=== PATIENT | female | born 1990 | race Caucasian/White ===

== ENCOUNTER → 2017-03-27 | Outpatient (REF) | payer OTHER ==
[~2017-03-27] MED LIST: WELC625T PO
[2017-03-27 19:01] LABS: MEAN CORPUSCULAR HEMOGLOBIN 30.9 pg (27.0-33.0); MEAN CORPUSCULAR VOLUME 90.9 fl (80.0-96.0); RED CELL DISTRIBUTION WIDTH 12.6 % (11.5-14.5); WHITE BLOOD COUNT 11.4 K/mm3 (4.0-10.0)
[2017-03-28 10:23] LABS: HCG, SERUM QUANTITATIVE 6504 MIU/ML
== END ==
LOC: M LAB REF 17:05
PROVIDERS: ATTEND Advanced Practice Midwife
DX: O36.80X0 Pregnancy with inconclusive fetal viability, not applicable or unspecified (principal)

== ENCOUNTER 2017-03-30 18:10 | Emergency (ER) | payer OTHER ==
[~2017-03-30] VITALS: Ht 170.2 cm; Wt 99.8 kg
[2017-03-30 18:11] VITALS: BP 137/83
[2017-03-30] MEDS ORDERED: WELC625T PO (18:20)
[2017-03-30 19:30] LABS: BASO % 0.4 % (0.0-1.0); EOS # 0.2 K/mm3 (0.0-0.50); EOS % 1.8 % (0.0-3.0); LARGE UNSTAINED CELL # 0.2 K/mm3 (0.0-0.4); LARGE UNSTAINED CELL % 1.3 % (0.0-4.0); LYMPH # 2.6 K/mm3 (1.5-6.5); LYMPH % 22.5 % (24.0-44.0); MEAN CORPUSCULAR HEMOGLOBIN 30.4 pg (27.0-33.0); MEAN CORPUSCULAR HGB CONC 33.2 g/dl (32.0-36.5); MEAN CORPUSCULAR VOLUME 91.4 fl (80.0-96.0); MONO # 0.6 K/mm3 (0.0-0.8); MONO % 4.9 % (0.0-5.0); NEUTROPHILS % 69.1 % (36.0-66.0); PLATELET COUNT, AUTOMATED 221 k/mm3 (150-450); RED CELL DISTRIBUTION WIDTH 12.5 % (11.5-14.5); WHITE BLOOD COUNT 11.6 K/mm3 (4.0-10.0)
[2017-03-30 20:05] LABS: ANION GAP 6 MEQ/L (8-16); BLOOD UREA NITROGEN 11 MG/DL (7-18); CALCIUM LEVEL 8.5 MG/DL (8.5-10.1); CARBON DIOXIDE LEVEL 29 MEQ/L (21-32); CHLORIDE LEVEL 106 MEQ/L (98-107); CREATININE FOR GFR 0.74 MG/DL (0.55-1.02); GLOMERULAR FILTRATION RATE > 60.0 (>60); GLUCOSE, FASTING 88 MG/DL (70-105); HCG, SERUM QUANTITATIVE 8309 MIU/ML; POTASSIUM SERUM 3.6 MEQ/L (3.5-5.1); SODIUM LEVEL 141 MEQ/L (136-145)
--- NOTE | 2017-03-30 21:20 | REPUSA ---
CLINICAL HISTORY: Bleeding. TECHNIQUE: Realtime sonographic images were obtained in multiple projections. COMMENTS: LMP is 02/09/2017. Gestational age by LMP for this patient is 7 weeks 0 days. Uterus measures 7.5 (CC) x 4.6 (AP) x 5.7 (Transverse) cm and anteverted in appearance. Gestational sac measures 15.5 (CC) x 8.3 (AP) x 10.9 (Transverse) mm. Mean gestational sac measures 11.8 mm equals to 6 weeks 1 day. pole measures 4.3 mm which equals to 6 weeks 1 day. No heart rate identified. Right ovary measures 2.7 (CC) x 1.8 (AP) x 1.6 (Transverse) cm. Left ovary measures 3.0 (CC) x 1.9 (AP) x 2.9 (Transverse) cm. Fluid noted within cervical canal. IMPRESSION: Single IUP. No FHR identified most compatible with demise. Consider follow up study in 3-5 days for confirmation. Thank you for your kind referral of this patient. We appreciate the opportunity to participate in th is patient's care.
== END 2017-03-30 21:50 | disposition home or self-care (01) ==
LOC: M ED 19:08
DX: O03.4 Incomplete spontaneous abortion without complication (principal); Z3A.01 Less than 8 weeks gestation of pregnancy; Z87.891 Personal history of nicotine dependence

== ENCOUNTER → 2017-04-02 | Outpatient (REF) | payer OTHER | LOC: M LAB REF 17:23 | PROVIDERS: ATTEND Advanced Practice Midwife | DX: O20.0 Threatened abortion (principal) ==

== ENCOUNTER → 2017-04-09 | Outpatient (REF) | payer OTHER | LOC: M LAB REF 16:38 | PROVIDERS: ATTEND Advanced Practice Midwife | DX: O20.0 Threatened abortion (principal); Z3A.00 Weeks of gestation of pregnancy not specified ==

== ENCOUNTER → 2017-04-19 | Outpatient (REF) | payer OTHER | LOC: M LAB REF 14:58 | PROVIDERS: ATTEND Advanced Practice Midwife | DX: O20.0 Threatened abortion (principal) ==

== ENCOUNTER → 2017-04-26 | Outpatient (REF) | payer OTHER | LOC: M LAB REF 15:03 | PROVIDERS: ATTEND Advanced Practice Midwife | DX: O20.0 Threatened abortion (principal) ==

== ENCOUNTER → 2017-05-06 | Outpatient (REF) | payer OTHER | LOC: M LAB REF 17:07 | PROVIDERS: ATTEND Advanced Practice Midwife | DX: O02.1 Missed abortion (principal) ==

== ENCOUNTER → 2017-06-25 | Outpatient (CLI) | payer OTHER ==
[~2017-06-25] MED LIST changes: +COLE625TAB PO; -WELC625T PO
[2017-06-25 13:59] LABS: ALBUMIN 3.9 GM/DL (3.2-5.2); ALBUMIN/GLOBULIN RATIO 1.08 (1.00-1.93); ALKALINE PHOSPHATASE 84 U/L (45-117); ALT/SGPT 54 U/L (12-78); ANION GAP 8 MEQ/L (8-16); AST/SGOT 36 U/L (15-37); BILIRUBIN,TOTAL 0.6 MG/DL (0.2-1.0); BLOOD UREA NITROGEN 13 MG/DL (7-18); CALCIUM LEVEL 9.1 MG/DL (8.5-10.1); CARBON DIOXIDE LEVEL 27 MEQ/L (21-32); CHLORIDE LEVEL 107 MEQ/L (98-107); CHOLESTEROL LEVEL 185 MG/DL (<200); CREATININE FOR GFR 0.89 MG/DL (0.55-1.02); GLOMERULAR FILTRATION RATE > 60.0 (>60); GLUCOSE, FASTING 82 MG/DL (70-105); POTASSIUM SERUM 4.7 MEQ/L (3.5-5.1); SODIUM LEVEL 142 MEQ/L (136-145); TOTAL PROTEIN 7.5 GM/DL (6.4-8.2); TRIGLYCERIDES LEVEL 195 MG/DL (<150)
== END ==
LOC: M SMT 08:53
PROVIDERS: ATTEND Physician Assistant Medical
DX: Z13.220 Encounter for screening for lipoid disorders (principal); Z13.29 Encounter for screening for other suspected endocrine disorder

== ENCOUNTER → 2017-06-25 | Outpatient (REF) | payer OTHER | LOC: M LAB REF 17:34 | PROVIDERS: ATTEND Advanced Practice Midwife | DX: Z12.4 Encounter for screening for malignant neoplasm of cervix (principal) ==

== ENCOUNTER → 2018-02-25 | Outpatient (CLI) | payer OTHER ==
[2018-02-25 18:01] LABS: BASO # 0.1 10^3/uL (0.0-0.2); BASO % 0.4 % (0.0-1.0); EOS # 0.1 10^3/uL (0.0-0.50); EOS % 0.7 % (0.0-3.0); HEMATOCRIT 40.2 % (36.0-47.0); HEMOGLOBIN 13.1 g/dl (12.0-16.0); IMMATURE GRANULOCYTE % 0.4 % (0-3.0); LYMPH # 2.2 10^3/uL (1.5-6.5); LYMPH % 19.5 % (24.0-44.0); MEAN CORPUSCULAR HEMOGLOBIN 29.2 pg (27.0-33.0); MEAN CORPUSCULAR HGB CONC 32.6 g/dl (32.0-36.5); MEAN CORPUSCULAR VOLUME 89.7 fl (80.0-96.0); MONO # 0.8 10^3/uL (0.0-0.8); MONO % 6.9 % (0.0-5.0); NEUTROPHILS # 8.2 10^3/uL (1.8-7.7); NEUTROPHILS % 72.1 % (36.0-66.0); PLATELET COUNT, AUTOMATED 244 10^3/uL (150-450); RED BLOOD COUNT 4.48 10^6/uL (4.00-5.40); RED CELL DISTRIBUTION WIDTH 12.6 % (11.5-14.5); WHITE BLOOD COUNT 11.3 10^3/uL (4.0-10.0)
[2018-02-26 10:40] LABS: RUBELLA IgG QUALITATIVE IMMUNE (IMMUNE)
[2018-02-26 10:44] LABS: HBsAg Prenatal NEGATIVE (NEGATIVE)
[2018-02-26 11:02] LABS: HEPATITIS C VIRUS ABY INDEX < 0.0 INDEX (<0.8)
[2018-02-26 11:24] LABS: HIV 1&2 SCREEN CENTAUR NEGATIVE (NEGATIVE)
== END ==
LOC: M SMT 15:12
DX: Z36.89 Encounter for other specified antenatal screening (principal); Z3A.01 Less than 8 weeks gestation of pregnancy
CPT/HCPCS: 86762

== ENCOUNTER → 2018-04-25 | Outpatient (CLI) | payer OTHER ==
[2018-04-25 16:16] LABS: CHLAMYDIA DNA AMPLIFICATION NEGATIVE (NEGATIVE); GC DNA AMPLIFICATION NEGATIVE (NEGATIVE)
== END ==
LOC: M LAB 09:03
DX: Z34.81 Encounter for supervision of other normal pregnancy, first trimester (principal)

== ENCOUNTER → 2018-05-16 | Outpatient (CLI) | payer OTHER | LOC: M RAD 14:08 | DX: Z36.89 Encounter for other specified antenatal screening (principal); O32.1XX0 Maternal care for breech presentation, not applicable or unspecified; Z3A.18 18 weeks gestation of pregnancy | CPT/HCPCS: 76811 ==

== ENCOUNTER → 2018-09-08 | Outpatient (REF) | payer OTHER | LOC: M LAB REF 18:42 | DX: D22.62 Melanocytic nevi of left upper limb, including shoulder (principal) ==

== ENCOUNTER → 2018-09-09 | Outpatient (REF) | payer OTHER ==
[2018-09-09 18:35] LABS: RETIC HEMOGLOBIN EQUIVALENT 32.8 pg (24-36); RETICULOCYTE # 85.4 10^9/L (17-77); RETICULOCYTE % 2.2 % (0.5-1.5)
[2018-09-09 19:16] LABS: FERRITIN 6 NG/ML (8-252); FOLATE 22.1 NG/ML (>5.4); IRON (FE) 78 UG/DL (50-170); PERCENT SATURATION 15.5 % (13.2-45.0); TOTAL IRON BINDING CAPACITY 502 UG/DL (250-450)
== END ==
LOC: M SFHCPLAZ 14:45
DX: D64.9 Anemia, unspecified (principal)

== ENCOUNTER → 2018-09-18 | Outpatient (REF) | payer OTHER | LOC: M LAB REF 17:09 | DX: Z34.83 Encounter for supervision of other normal pregnancy, third trimester (principal); Z3A.00 Weeks of gestation of pregnancy not specified ==

== ENCOUNTER → 2018-10-03 | Outpatient (CLI) | payer OTHER ==
[2018-10-07 00:07] LABS: ANTI-PARIETAL CELL ANTIBODY 10.5 Units (0.0-20.0)
[2018-10-07 00:07] LABS: INTRINSIC FACTOR ANTIBODY 0.9 AU/mL (0.0-1.1)
== END ==
LOC: M SMT 14:11
DX: E53.8 Deficiency of other specified B group vitamins (principal)

== ENCOUNTER 2018-10-08 06:18 | Inpatient (IN) | payer OTHER ==
[2018-10-08] MEDS ORDERED: FENTANYL 2MCG/ML ROPIVACAINE 0.2% IN 0.9% NACL 200ML IVBAG As Ordered (10:30)
[2018-10-08 10:41] LABS: HEMATOCRIT 37.3 % (36.0-47.0); HEMOGLOBIN 12.4 g/dl (12.0-15.5); MEAN CORPUSCULAR HEMOGLOBIN 28.5 pg (27.0-33.0); MEAN CORPUSCULAR HGB CONC 33.2 g/dl (32.0-36.5); MEAN CORPUSCULAR VOLUME 85.7 fl (80.0-96.0); PLATELET COUNT, AUTOMATED 168 10^3/uL (150-450); RED BLOOD COUNT 4.35 10^6/uL (4.00-5.40); RED CELL DISTRIBUTION WIDTH 14.6 % (11.5-14.5); WHITE BLOOD COUNT 12.3 10^3/uL (4.0-10.0)
[2018-10-08] MEDS: LACTATED RINGER'S 1000 ML IV (11:00)
[2018-10-08] MEDS: LR 1,000 ML IV (12:00)
[2018-10-08] MEDS ORDERED: diphenhydrAMINE INJ 50MG/ML VIAL (J1200) IV (12:15)
[2018-10-08] MEDS: FENTANYL/ROPIVACAINE/NACL BAG 200 ML EPIDURAL (12:15)
[2018-10-08] MEDS ORDERED: REFRIGERATOR IV KEYS XX (12:15)
[2018-10-08] MEDS ORDERED: EPIDURAL COMMENT XX (12:15)
[2018-10-08] MEDS ORDERED: ePHEDrine SULFATE 25 MG/5 ML(5MG/ML) SYRINGE IV (12:15)
[2018-10-08] MEDS ORDERED: EPIDURAL/PCA KEYS XX (12:15)
[2018-10-08] MEDS ORDERED: ONDANSETRON 4MG/2ML VIAL (J2405) IV ×2 (12:15→20:00)
[2018-10-08] MEDS ORDERED: NALOXONE INJ 0.4 MG/1 ML VIAL (J2310) IV (12:15)
[2018-10-08] MEDS ORDERED: OXYTOCIN 30 UNITS IN 0.9% NaCl 500ML IV BAG (J2590) As Ordered (15:05)
[2018-10-08] MEDS: OXYTOCIN DRIP 30 UNITS in APPROPRIATE DILUENT 1 EA IV ×3 (18:04→19:46)
[2018-10-08 18:44] LABS: CORD GAS ABE V -14.7; CORD GAS HCO3 V 14.6 MEQ/L; CORD GAS O2 SAT V 51.5 %; CORD GAS PCO2 V 46.6 mmHg; CORD GAS PH V 7.114 UNITS; CORD GAS PO2 V 27.9 mmHg; CORD GAS SBC V 12.7 MEQ/L
[2018-10-08 18:45] LABS: CORD GAS ABE A -13.4; CORD GAS HCO3 A 15.7 MEQ/L; CORD GAS PCO2 A 47.9 mmHg; CORD GAS PH A 7.133 UNITS; CORD GAS PO2 A 25.5 mmHg; CORD GAS SBC A 13.4 MEQ/L; CORD GAS TCO2 A 17.2 MEQ/L
[2018-10-08] MEDS ORDERED: LR 1,000 ML IV (19:46)
[2018-10-08] MEDS: IBUPROFEN 800 MG TAB PO (19:59)
[2018-10-08] MEDS: LIDOCAINE 1% MDV 20ML VIAL INFIL (20:00)
[2018-10-08] MEDS ORDERED: PROMETHAZINE 25 MG TAB PO (20:00)
[2018-10-08] MEDS ORDERED: MEASLES,MUMPS,RUBELLA VACCINE INJ (MMR-II) (90707) SC (20:00)
[2018-10-08] MEDS ORDERED: RHOGAM 300 MCG (1500 IU) INJ (J2790) IM (20:00)
[2018-10-08] MEDS: AMPICILLIN SOD/SULBACTAM SOD 3 GM in D5W MINI-BAG PLUS 100 ML IV (21:30)
[2018-10-08] MEDS: ACETAMINOPHEN 500 MG TAB PO (21:46)
[2018-10-09] MEDS: AMPICILLIN SOD/SULBACTAM SOD 3 GM in D5W MINI-BAG PLUS 100 ML IV ×2 (03:46→09:30)
[2018-10-09] MEDS: IBUPROFEN 800 MG TAB PO (03:47)
[2018-10-09] MEDS: ACETAMINOPHEN 500 MG TAB PO (03:47)
[2018-10-09] MEDS: DIBUCAINE 1% OINTMENT 30GM TOP (04:26)
[2018-10-09] MEDS: PRENATAL VITAMINS CHEWABLE TABLET PO (08:46)
[2018-10-09] MEDS: DOCUSATE SODIUM 100 MG CAP PO (08:47)
== END 2018-10-09 09:45 | disposition home or self-care (01) | DRG 807 ==
LOC: M LDO 06:18 → M LDI 09:56 → M OBS 20:45
PROVIDERS: Advanced Practice Midwife
PROC: 10E0XZZ Delivery of Products of Conception, External Approach (ICD-10-PCS; principal; 2018-10-08)
PROC: 0KQM0ZZ Repair Perineum Muscle, Open Approach (ICD-10-PCS; 2018-10-08)
PROC: 10907ZC Drainage of Amniotic Fluid, Therapeutic from Products of Conception, Via Natural or Artificial Opening (ICD-10-PCS; 2018-10-08)
PROC: 0HQ9XZZ Repair Perineum Skin, External Approach (ICD-10-PCS; 2018-10-08)
DX: O69.1XX0 Labor and delivery complicated by cord around neck, with compression, not applicable or unspecified (principal); Z37.0 Single live birth; Z3A.39 39 weeks gestation of pregnancy; O70.1 Second degree perineal laceration during delivery; O70.0 First degree perineal laceration during delivery

== ENCOUNTER → 2019-03-16 | Outpatient (REF) | payer OTHER ==
[~2019-03-16] MED LIST changes: +CALC12504 PO; +IBUP-1114 PO; +IRON27TA2 PO; +MAPA500T2 PO; +NUPE1OIN2 TOP; +PRENTAB9 PO; +VITACAP8 PO
== END ==
LOC: M SFHCPLAZ 09:46
PROVIDERS: ATTEND Dermatology
DX: D23.62 Other benign neoplasm of skin of left upper limb, including shoulder (principal)

== ENCOUNTER 2019-04-01 18:20 | Emergency (ER) | payer OTHER ==
[~2019-04-01] VITALS: Ht 170.2 cm; Wt 96.8 kg
[2019-04-01] MEDS ORDERED: LEVO750T13 PO (18:27)
[2019-04-01] MEDS ORDERED: NS 1,000 ML IV ONE (19:45)
[2019-04-01] MEDS ORDERED: KETOROLAC 30 MG/ML VIAL (J1885) IV ONE (20:00)
[2019-04-01 20:06] LABS: BASO % 0.3 % (0.0-1.0); EOS % 0.3 % (0.0-3.0); HEMATOCRIT 36.6 % (36.0-47.0); HEMOGLOBIN 12.3 g/dl (12.0-15.5); LYMPH # 1.6 10^3/uL (1.5-4.5); LYMPH % 13.8 % (24.0-44.0); MEAN CORPUSCULAR HEMOGLOBIN 29.9 pg (27.0-33.0); MEAN CORPUSCULAR HGB CONC 33.6 g/dl (32.0-36.5); MEAN CORPUSCULAR VOLUME 89.1 fl (80.0-96.0); MONO # 1.4 10^3/uL (0.0-0.8); MONO % 11.8 % (0.0-5.0); NEUTROPHILS # 8.7 10^3/uL (1.8-7.7); NEUTROPHILS % 73.5 % (36.0-66.0); PLATELET COUNT, AUTOMATED 150 10^3/uL (150-450); RED BLOOD COUNT 4.11 10^6/uL (4.00-5.40); WHITE BLOOD COUNT 11.9 10^3/uL (4.0-10.0)
[2019-04-01 20:25] LABS: ALT/SGPT 39 U/L (12-78); AMYLASE 18 U/L (25-115); BILIRUBIN,DIRECT 0.2 MG/DL (0.0-0.2); BILIRUBIN,TOTAL 0.7 MG/DL (0.2-1.0); BLOOD UREA NITROGEN 14 MG/DL (7-18); CALCIUM LEVEL 7.9 MG/DL (8.5-10.1); CARBON DIOXIDE LEVEL 29 MEQ/L (21-32); CHLORIDE LEVEL 103 MEQ/L (98-107); CREATININE FOR GFR 0.92 MG/DL (0.55-1.30); GLOMERULAR FILTRATION RATE > 60.0 (>60); GLUCOSE, FASTING 93 MG/DL (70-100); LIPASE 69 U/L (73-393); POTASSIUM SERUM 3.5 MEQ/L (3.5-5.1); SODIUM LEVEL 138 MEQ/L (136-145); TOTAL PROTEIN 6.9 GM/DL (6.4-8.2)
--- NOTE | 2019-04-01 21:18 | REPVR ---
EXAM: US Retroperitoneal Limited, Kidneys EXAM DATE/TIME: 04/01/2019 8:28 PM CLINICAL HISTORY: 28 years old, female; Abdominal pain; Flank; Other: Bliat; Additional info: Bilateral flank pain TECHNIQUE: Imaging protocol: Real-time ultrasound of the retroperitoneum with image documentation. Examination was focused on the kidneys. COMPARISON: No relevant prior studies available. FINDINGS: Right kidney: The right kidney measures 11.8 CM in length by 5.2 CM in thickness. There is no evidence of hydronephrosis on the right. Left kidney: The left kidney measures 9.7 CM and 1 x 6.5 CM in thickness. There is no evidence of hydronephrosis of the left kidney. Bladder: The urinary bladder could not be evaluated because it is empty. IMPRESSION: Normal-appearing kidneys. Electronically signed by: Helio Guaman On 04/01/2019 21:18:24 PM
[2019-04-01] MEDS ORDERED: KETO10TAB PO (22:38)
[2019-04-01 22:48] VITALS: BP 111/63
[2019-04-01] MEDS ORDERED: CIPR-249 PO (22:56)
== END 2019-04-01 22:50 | disposition home or self-care (01) ==
LOC: M ED 18:20
DX: N10 Acute pyelonephritis (principal); Z79.899 Other long term (current) drug therapy
CPT/HCPCS: 76775; 80048; 80076; 81001; 82150; 83605; 83690; 85025; 87086; 96361; 96374; 99284; J1885

== ENCOUNTER → 2019-07-23 | Outpatient (REF) | payer OTHER ==
[~2019-07-23] MED LIST changes: -CALC12504 PO; +CALC500T61 PO; +CIPR-249 PO; +KETO10TAB PO; +LEVO750T13 PO
[2019-07-23 16:44] LABS: FREE T4 0.95 NG/DL (0.76-1.46); THYROID STIMULATING HORMONE 1.33 uIU/ML (0.358-3.740)
== END ==
LOC: M SFHCPLAZ 13:37
PROVIDERS: ATTEND Nurse Practitioner Family
DX: F32.9 Major depressive disorder, single episode, unspecified (principal)

== ENCOUNTER → 2019-09-01 | Outpatient (REF) | payer OTHER | LOC: M SFHCPLAZ 09:43 | PROVIDERS: ATTEND Dermatology | DX: D22.62 Melanocytic nevi of left upper limb, including shoulder (principal) ==

== ENCOUNTER → 2020-02-11 | Outpatient (REF) | payer BC | LOC: M SFHCPLAZ 13:02 | PROVIDERS: ATTEND Nurse Practitioner Family | DX: M54.5 Low back pain (principal) ==

== ENCOUNTER → 2020-12-27 | Outpatient (CLI) | payer BC ==
--- NOTE | 2020-12-27 16:59 | REP ---
INDICATION: HEMATURIA AND FLANK PAIN. COMPARISON: None TECHNIQUE: Noncontrast enhanced helical technique using the stone protocol FINDINGS: The lung bases are clear. Limited evaluation of the solid intra-organs and gallbladder show no gross abnormalities. Limited evaluation of the pancreas, adrenal glands, and kidneys show no gross abnormalities. There is no nephroureterolithiasis, hydronephrosis, or hydroureter. There are no urinary bladder calcifications. Limited evaluation of the bowel loops and the mesenteries show no gross abnormalities. Limited evaluation of the abdominal aorta and para-aortic regions show no abnormalities. There is no free fluid or free air. The osseous structures are within normal limits. IMPRESSION: CT findings are within normal limits. <Electronically signed by Dean Gibson > 12/27/20 [id number]
[2020-12-27 17:45] LABS: APPEARANCE, URINE CLEAR (CLEAR); BACTERIA, URINE AUTO NEGATIVE (NEGATIVE); BILIRUBIN, URINE AUTO NEGATIVE (NEGATIVE); BLOOD, URINE BLOOD NEGATIVE (NEGATIVE); COLOR, URINE YELLOW (YELLOW); GLUCOSE, URINE (UA) AUTO NEGATIVE (NEGATIVE); KETONE, URINE AUTO NEGATIVE (NEGATIVE); LEUKOCYTE ESTERASE, URINE AUTO NEGATIVE (NEGATIVE); MUCUS, URINE SMALL (NEGATIVE); NITRITE, URINE AUTO NEGATIVE (NEGATIVE); PROTEIN, URINE AUTO NEGATIVE (NEGATIVE); RBC, URINE AUTO 4 /HPF (0-3); SPECIFIC GRAVITY URINE AUTO 1.023 (1.002-1.035); SQUAMOUS EPITHELIAL CELL UR AU 3 /HPF (0-6); UROBILINOGEN, URINE AUTO 0.2 mg/dL (0.0-2.0); WBC, URINE AUTO 3 /HPF (0-3)
== END ==
LOC: M RAD 16:05
PROVIDERS: ATTEND Nurse Practitioner Family
DX: R10.9 Unspecified abdominal pain (principal)

== ENCOUNTER → 2022-08-14 | Outpatient (REF) | payer OTHER, BC ==
[~2022-08-14] MED LIST changes: +COLE625T17 PO; -COLE625TAB PO; +LEVO1TAB40 PO; -LEVO750T13 PO
== END ==
LOC: M SFHCWAGY 13:18
PROVIDERS: ATTEND Obstetrics & Gynecology
DX: Z12.4 Encounter for screening for malignant neoplasm of cervix (principal)
CPT/HCPCS: 87624; G0123

== ENCOUNTER → 2022-12-12 | Outpatient (CLI) | payer OTHER ==
[2022-12-12 13:46] LABS: HEMATOCRIT 40.5 % (36.0-47.0); HEMOGLOBIN 12.9 g/dl (12.0-15.5); MEAN CORPUSCULAR HEMOGLOBIN 29.2 pg (27.0-33.0); MEAN CORPUSCULAR HGB CONC 31.9 g/dl (32.0-36.5); MEAN CORPUSCULAR VOLUME 91.6 fl (80.0-96.0); PLATELET COUNT, AUTOMATED 233 10^3/uL (150-450); RED BLOOD COUNT 4.42 10^6/uL (4.00-5.40); WHITE BLOOD COUNT 10.8 10^3/uL (4.0-10.0)
[2022-12-12 14:32] LABS: HIV 1&2 SCREEN CENTAUR NEGATIVE (NEGATIVE)
[2022-12-12 14:40] LABS: HEPATITIS C VIRUS ABY INDEX 0.1 INDEX (<0.8)
[2022-12-12 17:21] LABS: GC DNA AMPLIFICATION NEGATIVE (NEGATIVE)
== END ==
LOC: M PLALAB 11:35
PROVIDERS: ATTEND Advanced Practice Midwife
DX: Z34.91 Encounter for supervision of normal pregnancy, unspecified, first trimester (principal)

== ENCOUNTER → 2023-01-29 | Outpatient (CLI) | payer OTHER ==
[2023-01-29 15:57] LABS: HEMOGLOBIN 11.9 g/dl (12.0-15.5); MEAN CORPUSCULAR HEMOGLOBIN 28.7 pg (27.0-33.0); MEAN CORPUSCULAR HGB CONC 32.2 g/dl (32.0-36.5); MEAN CORPUSCULAR VOLUME 89.2 fl (80.0-96.0); PLATELET COUNT, AUTOMATED 184 10^3/uL (150-450); RED BLOOD COUNT 4.15 10^6/uL (4.00-5.40); WHITE BLOOD COUNT 8.1 10^3/uL (4.0-10.0)
[2023-01-29 17:00] LABS: HIV 1&2 SCREEN CENTAUR NEGATIVE (NEGATIVE)
[2023-01-29 18:06] LABS: GC DNA AMPLIFICATION NEGATIVE (NEGATIVE)
== END ==
LOC: M PLALAB 10:07
PROVIDERS: ATTEND Specialist
DX: Z34.81 Encounter for supervision of other normal pregnancy, first trimester (principal); Z3A.00 Weeks of gestation of pregnancy not specified

== ENCOUNTER → 2023-02-15 | Outpatient (CLI) | payer OTHER | LOC: M WHC 12:59 | PROVIDERS: ATTEND Specialist | DX: Z34.82 Encounter for supervision of other normal pregnancy, second trimester (principal); Z3A.18 18 weeks gestation of pregnancy ==

== ENCOUNTER → 2023-03-22 | Outpatient (CLI) | payer OTHER | LOC: M WHC 14:09 | PROVIDERS: ATTEND Obstetrics & Gynecology | DX: Z34.92 Encounter for supervision of normal pregnancy, unspecified, second trimester (principal) ==

== ENCOUNTER → 2023-04-22 | Outpatient (CLI) | payer OTHER ==
[2023-04-22 18:05] LABS: HEMATOCRIT 33.7 % (36.0-47.0); HEMOGLOBIN 10.6 g/dl (12.0-15.5); MEAN CORPUSCULAR HEMOGLOBIN 28.7 pg (27.0-33.0); MEAN CORPUSCULAR HGB CONC 31.5 g/dl (32.0-36.5); MEAN CORPUSCULAR VOLUME 91.3 fl (80.0-96.0); PLATELET COUNT, AUTOMATED 202 10^3/uL (150-450); RED BLOOD COUNT 3.69 10^6/uL (4.00-5.40); WHITE BLOOD COUNT 9.5 10^3/uL (4.0-10.0)
[2023-04-22 19:11] LABS: GC DNA AMPLIFICATION NEGATIVE (NEGATIVE)
== END ==
LOC: M PLALAB 14:02
PROVIDERS: ATTEND Obstetrics & Gynecology
DX: Z34.92 Encounter for supervision of normal pregnancy, unspecified, second trimester (principal)

== ENCOUNTER → 2023-05-24 | Outpatient (CLI) | payer OTHER | LOC: M WHC 15:27 | PROVIDERS: ATTEND Obstetrics & Gynecology | DX: O44.03 Complete placenta previa NOS or without hemorrhage, third trimester (principal); Z3A.34 34 weeks gestation of pregnancy ==

== ENCOUNTER 2023-06-20 10:32 | Outpatient (CLI) | payer OTHER ==
[~2023-06-20] VITALS: Ht 167.6 cm; Wt 110.2 kg
[2023-06-20 10:54] VITALS: BP 120/66
[2023-06-20] MEDS ORDERED: PRENTAB9 PO (10:58)
[2023-06-20] MEDS ORDERED: HOME MED LIST COMPLETE! XX SCH (11:00)
[2023-06-20 12:00] VITALS: BP 120/65
[2023-06-20] MEDS ORDERED: BETAMETHASONE SOLUSPAN 6MG/ML 5ML VIAL IM ONE (12:00)
[2023-06-21] MEDS ORDERED: LEXA1TAB PO (07:32)
[2023-06-21] MEDS ORDERED: COLE625T17 PO (07:53)
== END 2023-06-20 12:02 | disposition home or self-care (01) ==
LOC: M LDO 10:32
PROVIDERS: ATTEND Obstetrics & Gynecology
DX: O44.03 Complete placenta previa NOS or without hemorrhage, third trimester (principal); Z3A.35 35 weeks gestation of pregnancy
CPT/HCPCS: 59025; 96372; G0463; J0702

== ENCOUNTER 2023-06-28 05:09 | Inpatient (IN) | payer OTHER ==
[2023-06-28] VITALS (8 sets, daily range): BP systolic 101–126; BP diastolic 55–74; TEMP 97.6; O2SAT 95–97
[~2023-06-28] VITALS: Ht 167.6 cm; Wt 109.6 kg
[~2023-06-28 05:09] MED LIST changes: +LEXA1TAB PO
[2023-06-28] MEDS ORDERED: HOME MED LIST COMPLETE! XX SCH (05:55)
[2023-06-28] MEDS ORDERED: LACTATED RINGER'S 1000 ML IV STA (05:56)
[2023-06-28] MEDS ORDERED: LR 1,000 ML IV SCH (06:00)
[2023-06-28] MEDS ORDERED: ceFAZolin SOD 2 GM in IV 1 EA IV ONE (06:00)
[2023-06-28] MEDS ORDERED: BICITRA 30ML SOLN UDC PO ONE (06:00)
[2023-06-28 09:13] LABS: HEMATOCRIT 33.3 % (36.0-47.0); HEMOGLOBIN 10.8 g/dl (12.0-15.5); MEAN CORPUSCULAR HGB CONC 32.4 g/dl (32.0-36.5); MEAN CORPUSCULAR VOLUME 86.3 fl (80.0-96.0); PLATELET COUNT, AUTOMATED 152 10^3/uL (150-450); RED BLOOD COUNT 3.86 10^6/uL (4.00-5.40)
[2023-06-28] MEDS ORDERED: KETOROLAC 60MG 2ML VIAL As Ordered ONE (09:14)
[2023-06-28] MEDS ORDERED: OXYTOCIN INJ 10UNITS/ML 1ML VIAL As Ordered ONE ×2 (09:14→10:46)
[2023-06-28] MEDS ORDERED: MORPHINE PRES-FREE INJ 10 MG/10 ML VIAL As Ordered ONE (09:15)
[2023-06-28] MEDS ORDERED: ONDANSETRON 4MG 2ML VIAL As Ordered ONE (10:41)
[2023-06-28] MEDS ORDERED: ePHEDrine SULFATE 25 MG/5 ML(5MG/ML) SYRINGE As Ordered ONE (10:41)
[2023-06-28] MEDS ORDERED: PHENYLephrine 500MCG 5ML (100MCG/ML) SYRINGE As Ordered ONE (10:41)
[2023-06-28 10:53] LABS: CORD GAS ABE V -1.7; CORD GAS HCO3 V 25.8 MMOL/L; CORD GAS O2 SAT V 32.6 %; CORD GAS PCO2 V 54.6 mmHg; CORD GAS PH V 7.293 UNITS; CORD GAS PO2 V 16.6 mmHg; CORD GAS SBC V 21.3 MMOL/L; CORD GAS TCO2 V 27.5 MMOL/L
[2023-06-28] MEDS ORDERED: METOCLOPRAMIDE INJ 10MG/2ML VIAL IV PRN ×2 (11:40→12:00)
[2023-06-28] MEDS ORDERED: oxyCODONE 5MG TAB PO PRN ×2 (11:40→12:00)
[2023-06-28] MEDS ORDERED: OXYTOCIN DRIP 30 UNITS in IV 1 EA IV SCH (11:40)
[2023-06-28] MEDS ORDERED: SIMETHICONE 80MG CHEW TAB PO PRN (11:40)
[2023-06-28] MEDS ORDERED: RHOGAM 300MCG (1500IU) INJ IM SCH (11:40)
[2023-06-28] MEDS ORDERED: DOCUSATE SODIUM 100MG CAPSULE PO PRN (11:40)
[2023-06-28] MEDS ORDERED: ONDANSETRON 4MG 2ML VIAL IV PRN ×2 (11:40→12:00)
[2023-06-28] MEDS ORDERED: OXYTOCIN 30UNITS IN 0.9% NaCl 500ML IV BAG As Ordered ONE (11:48)
[2023-06-28] MEDS ORDERED: NALOXONE INJ 0.4MG/1ML VIAL IV PRN ×2 (12:00)
[2023-06-28] MEDS ORDERED: **NOTE PATIENT COMMENT** MISC XX SCH (12:00)
[2023-06-28] MEDS ORDERED: diphenhydrAMINE 50MG/ML VIAL IV PRN (12:00)
[2023-06-28] MEDS ORDERED: fentaNYL 100 MCG/2 ML INJECTION IV PRN (12:00)
[2023-06-28] MEDS ORDERED: HYDROMORPHONE HCL 0.5 MG/ 0.5 ML SYRINGE IV PRN (12:00)
[2023-06-28] MEDS: ACETAMINOPHEN 500 MG TAB PO SCH ×3 (12:58→23:39)
[2023-06-28 16:34] LABS: HEMATOCRIT 29.8 % (36.0-47.0); HEMOGLOBIN 9.6 g/dl (12.0-15.5); MEAN CORPUSCULAR HEMOGLOBIN 28.2 pg (27.0-33.0); MEAN CORPUSCULAR HGB CONC 32.2 g/dl (32.0-36.5); MEAN CORPUSCULAR VOLUME 87.4 fl (80.0-96.0); PLATELET COUNT, AUTOMATED 150 10^3/uL (150-450); RED BLOOD COUNT 3.41 10^6/uL (4.00-5.40); WHITE BLOOD COUNT 11.7 10^3/uL (4.0-10.0)
[2023-06-28] MEDS: LR 1,000 ML IV SCH (16:35)
[2023-06-28] MEDS: KETOROLAC 30 MG/ML 1ML VIAL IV SCH ×2 (18:15→23:42)
[2023-06-28] MEDS: ENOXAPARIN 30MG/0.3ML SYRINGE (J1650 PER 10MG) SC SCH (18:23)
[2023-06-28] MEDS: SLF 3 ML SYR IV SCH ×2 (20:33→23:42)
[2023-06-29] MEDS: LR 1,000 ML IV SCH ×2 (00:06→06:07)
[2023-06-29 02:00] VITALS: BP 101/55; O2SAT 96
[2023-06-29] MEDS: ENOXAPARIN 30MG/0.3ML SYRINGE (J1650 PER 10MG) SC SCH ×2 (04:11→15:59)
[2023-06-29] MEDS: ACETAMINOPHEN 500 MG TAB PO SCH ×4 (06:04→23:41)
[2023-06-29] MEDS: SLF 3 ML SYR IV SCH (06:07)
[2023-06-29] MEDS: KETOROLAC 30 MG/ML 1ML VIAL IV SCH (06:07)
[2023-06-29 06:10] VITALS: BP 106/63; O2SAT 100
[2023-06-29 07:48] LABS: HEMATOCRIT 26.9 % (36.0-47.0); HEMOGLOBIN 8.7 g/dl (12.0-15.5); MEAN CORPUSCULAR HGB CONC 32.3 g/dl (32.0-36.5); MEAN CORPUSCULAR VOLUME 89.7 fl (80.0-96.0); PLATELET COUNT, AUTOMATED 109 10^3/uL (150-450); WHITE BLOOD COUNT 7.7 10^3/uL (4.0-10.0)
[2023-06-29 10:00] VITALS: BP 102/58; O2SAT 100
[2023-06-29] MEDS: ESCITALOPRAM OXALATE 10 MG TAB (LEXAPRO) PO SCH (10:39)
[2023-06-29] MEDS: IBUPROFEN 600MG TAB PO SCH ×2 (14:10→19:29)
[2023-06-29 14:37] VITALS: BP 111/59; O2SAT 98
[2023-06-29] MEDS: PRENATAL VITAMINS CHEWABLE TABLET PO SCH (16:00)
[2023-06-29 18:00] VITALS: BP 117/62; O2SAT 98
[2023-06-29] MEDS: oxyCODONE 5MG TAB PO PRN (20:23)
[2023-06-29 22:13] VITALS: BP 121/58; O2SAT 97
[2023-06-30 02:12] VITALS: BP 112/62; O2SAT 96
[2023-06-30] MEDS: IBUPROFEN 600MG TAB PO SCH ×2 (02:28→08:05)
[2023-06-30] MEDS: oxyCODONE 5MG TAB PO PRN (04:09)
[2023-06-30] MEDS: ENOXAPARIN 30MG/0.3ML SYRINGE (J1650 PER 10MG) SC SCH (04:11)
[2023-06-30] MEDS: ACETAMINOPHEN 500 MG TAB PO SCH (05:49)
[2023-06-30 06:00] VITALS: BP 109/65; O2SAT 96
[2023-06-30] MEDS: ESCITALOPRAM OXALATE 10 MG TAB (LEXAPRO) PO SCH (08:05)
[2023-06-30] MEDS: PRENATAL VITAMINS CHEWABLE TABLET PO SCH (08:05)
[2023-06-30] MEDS ORDERED: MEASLES,MUMPS,RUBELLA VACCINE INJ (MMR-II) SC.IMMUN ONE (09:00)
[2023-06-30 10:00] VITALS: BP 124/58; O2SAT 96
[2023-06-30] MEDS ORDERED: COLA100C5 PO (11:00)
[2023-06-30] MEDS ORDERED: IBUP-1022 PO (11:00)
[2023-06-30] MEDS ORDERED: OXYC-517 PO (11:00)
== END 2023-06-30 12:15 | disposition home or self-care (01) | DRG 540 ==
LOC: M LDI 05:09 → M OBS 13:30
PROVIDERS: ADMIT Obstetrics & Gynecology; ATTEND Obstetrics & Gynecology
PROC: 0UT70ZZ Resection of Bilateral Fallopian Tubes, Open Approach (ICD-10-PCS; 2023-06-28)
PROC: 10D00Z1 Extraction of Products of Conception, Low, Open Approach (ICD-10-PCS; principal; 2023-06-28 07:30)
DX: O44.03 Complete placenta previa NOS or without hemorrhage, third trimester (principal); O32.2XX0 Maternal care for transverse and oblique lie, not applicable or unspecified; O77.0 Labor and delivery complicated by meconium in amniotic fluid; O69.2XX0 Labor and delivery complicated by other cord entanglement, with compression, not applicable or unspecified; Z3A.36 36 weeks gestation of pregnancy; Z37.0 Single live birth; Z30.2 Encounter for sterilization

== ENCOUNTER 2023-07-08 13:07 | Emergency (ER) | payer OTHER ==
[~2023-07-08] VITALS: Ht 170.2 cm; Wt 100.0 kg
[~2023-07-08 13:07] MED LIST changes: +COLA100C5 PO; +IBUP-1022 PO; +OXYC-517 PO
[2023-07-08 13:09] VITALS: BP 140/79; TEMP 98.2; O2SAT 98
[2023-07-08 13:50] LABS: BASO # 0.1 10^3/uL (0.0-0.2); BASO % 0.6 % (0.0-1.0); EOS # 0.4 10^3/uL (0.0-0.5); EOS % 3.4 % (0.0-3.0); HEMATOCRIT 34.8 % (36.0-47.0); HEMOGLOBIN 11.1 g/dl (12.0-15.5); LYMPH # 1.9 10^3/uL (1.5-5.0); LYMPH % 18.2 % (24.0-44.0); MEAN CORPUSCULAR HEMOGLOBIN 28.1 pg (27.0-33.0); MEAN CORPUSCULAR HGB CONC 31.9 g/dl (32.0-36.5); MEAN CORPUSCULAR VOLUME 88.1 fl (80.0-96.0); MONO # 0.6 10^3/uL (0.0-0.8); MONO % 5.8 % (2.0-8.0); NEUTROPHILS # 7.3 10^3/uL (1.5-8.5); NEUTROPHILS % 71.1 % (36.0-66.0); PLATELET COUNT, AUTOMATED 310 10^3/uL (150-450); RED BLOOD COUNT 3.95 10^6/uL (4.00-5.40); WHITE BLOOD COUNT 10.3 10^3/uL (4.0-10.0)
[2023-07-08 14:15] LABS: LIPASE 39 U/L (12-53)
[2023-07-08 14:17] LABS: ALKALINE PHOSPHATASE 84 U/L (46-116); ALT/SGPT 12 U/L (7.0-40); AST/SGOT 8 U/L (<34); BILIRUBIN,DIRECT 0.1 MG/DL (<0.4); BILIRUBIN,TOTAL 0.4 MG/DL (0.3-1.2); BLOOD UREA NITROGEN 14 MG/DL (9-23); CALCIUM LEVEL 8.8 MG/DL (8.5-10.1); CARBON DIOXIDE LEVEL 27 MMOL/L (20-31); CHLORIDE LEVEL 106 MMOL/L (98-107); GLOMERULAR FILTRATION RATE > 60.0 (>60); GLUCOSE, FASTING 89 MG/DL (60-100); POTASSIUM SERUM 4.1 MMOL/L (3.5-5.1); SODIUM LEVEL 142 MMOL/L (136-145); TOTAL PROTEIN 6.2 G/DL (5.7-8.2)
== END 2023-07-08 19:04 | disposition left against medical advice (07) ==
LOC: M ED 13:07
DX: R10.9 Unspecified abdominal pain (principal); Z53.21 Procedure and treatment not carried out due to patient leaving prior to being seen by health care provider